=== PATIENT | male | born 1940 | race Caucasian/White ===

== ENCOUNTER 2019-12-16 05:50 | Day surgery (SDC) | payer MEDICARE ==
[~2019-12-16] VITALS: Ht 172.7 cm; Wt 68.0 kg
[2019-12-16] MEDS ORDERED: LACTATED RINGERS 1,000 ML IV SCH (06:42)
[2019-12-16] MEDS ORDERED: METO200T47 PO (06:47)
[2019-12-16] MEDS ORDERED: ASPI-496 PO (06:47)
[2019-12-16] MEDS ORDERED: FURO40TA6 PO (06:47)
[2019-12-16] MEDS ORDERED: ATOR-2 PO (06:47)
[2019-12-16] MEDS ORDERED: GABA300C10 PO (06:47)
[2019-12-16] MEDS ORDERED: POTA10CA PO (06:47)
[2019-12-16 06:48] VITALS: BP 93/52
[2019-12-16] MEDS ORDERED: PROMETHAZINE 25 MG/ML, 1ML IV PRN (07:00)
[2019-12-16] MEDS ORDERED: HYDROmorphone 2 MG/ML, 1ML IVPush PRN (07:00)
[2019-12-16] MEDS ORDERED: OXYcodone 5 MG/5 ML ORAL.SOL UDC PO PRN (07:00)
[2019-12-16] MEDS ORDERED: ONDANSETRON 2MG/ML, 2ML IV PRN (07:00)
[2019-12-16] MEDS ORDERED: hydrALAzine 20 MG/ML, 1ML IV PRN (07:00)
[2019-12-16] MEDS ORDERED: LABETALOL 5MG/ML, 20ML IV PRN (07:00)
[2019-12-16] MEDS ORDERED: FENTANYL PF 100 MCG/2ML IV PRN (07:00)
[2019-12-16] MEDS ORDERED: FENTANYL PF 100 MCG/2ML ONE (07:14)
[2019-12-16] MEDS ORDERED: PROPOFOL 10 MG/ML, 20ML ONE (07:15)
[2019-12-16] MEDS ORDERED: MIDAZOLAM 1 MG/ML, 2ML ONE (07:15)
== END 2019-12-16 09:55 | disposition home or self-care (01) ==
LOC: OUT 05:50
PROVIDERS: ATTEND Internal Medicine Gastroenterology
DX: R13.19 Other dysphagia (principal); K22.2 Esophageal obstruction; K22.70 Barrett's esophagus without dysplasia; I10 Essential (primary) hypertension; E78.00 Pure hypercholesterolemia, unspecified; Z79.82 Long term (current) use of aspirin; Z79.899 Other long term (current) drug therapy; Z87.891 Personal history of nicotine dependence
CPT/HCPCS: 43239; 43249; 74360; 88305; 93005; C1725; J2250; J2704; J3010; J7120; 76000